=== PATIENT | male | born 1995 | race Two or more races ===

== ENCOUNTER 2022-02-12 19:40 | Emergency (ER) | payer MEDICAID, OTHER ==
[~2022-02-12] VITALS: Ht 175.3 cm; Wt 113.4 kg
--- NOTE | 2022-02-12 19:54 | NUR ---
[id number] FROM HOME C/O RIGHT SIDE ABD PAIN STARTED IN THE AM. PT A/OX4. TOLERATING R/A AT 98% WITH NO RESP DISTRESS. CONNECTED PT TO POX AND MONITOR. SAFETY MEASURES IN PLACE.
[2022-02-12] MEDS ORDERED: PANTOPRAZOLE 40 MG VIAL ONE (20:57)
[2022-02-12] MEDS ORDERED: ONDANSETRON HCL/PF 4 MG/2 ML VIAL ONE (20:57)
[2022-02-12] MEDS ORDERED: PANTOPRAZOLE 40 MG VIAL IV ONE (21:00)
[2022-02-12] MEDS ORDERED: IV NS 0.9% 1,000 ML BAG IV ONE (21:00)
[2022-02-12] MEDS ORDERED: ONDANSETRON HCL/PF 4 MG/2 ML VIAL IVP ONE (21:00)
--- NOTE | 2022-02-12 21:10 | NUR ---
US TECH AT PT'S BEDSIDE
[2022-02-12 21:13] LABS: BASOPHILS % (AUTO) 0.1 % (0.0-2.0); EOSINOPHILS % (AUTO) 0.1 % (0.0-6.0); HEMATOCRIT 44 % (39-51); HEMOGLOBIN 14.8 g/dL (13.5-17.5); LYMPHOCYTES # (AUTO) 0.7 K/uL (0.8-4.8); LYMPHOCYTES % (AUTO) 5.5 % (20.0-44.0); MEAN CORPUSCULAR HGB CONC 34 g/dl (31.0-36.0); MEAN CORPUSCULAR VOLUME 81 fL (80-96); MONOCYTES # (AUTO) 0.8 K/uL (0.1-1.30); MONOCYTES % (AUTO) 6.2 % (2.0-12.0); NEUTROPHILS # (AUTO) 11.4 K/uL (1.8-8.9); NEUTROPHILS % (AUTO) 88.1 % (43.0-81.0); PLATELET COUNT (AUTO) 202 K/uL (150-450); RED BLOOD CELL COUNT(AUTO) 5.49 MIL/uL (4.5-6.0); WHITE BLOOD COUNT (AUTO) 12.9 K/uL (4.3-11.0)
--- NOTE | 2022-02-12 21:14 | NUR ---
LAC #18G S/L BLOOD COLLECTED AND SENT TO LAB
[2022-02-12 21:32] LABS: ALBUMIN 4.5 g/dL (3.4-5.0); BILIRUBIN,DIRECT 0.2 mg/dL (0.0-0.2); BILIRUBIN,TOTAL 1.1 mg/dL (0.2-1.0); CALCIUM, SERUM 10.2 mg/dL (8.5-10.1); CREATININE 1.1 mg/dL (0.6-1.3); POTASSIUM 4.2 mmol/L (3.5-5.1)
[2022-02-12] MEDS ORDERED: ONDA4TAB5 PO (21:53)
[2022-02-12] MEDS ORDERED: PANT40TA2 PO (21:53)
--- NOTE | 2022-02-12 22:11 | NUR ---
Patient discharged to home in stable condition. Written and verbal after care instructions given. Patient verbalizes understanding of instruction. IV removed. Catheter intact and site benign. Pressure and 4x4 applied to site. No bleeding noted. pt ambulatory with a steady gait
[2022-02-12 22:12] VITALS: BP 120/73
== END 2022-02-12 22:12 | disposition home or self-care (01) ==
LOC: ER 19:43
DX: R10.10 Upper abdominal pain, unspecified (principal); R11.10 Vomiting, unspecified
CPT/HCPCS: 99284; 96374; 76700; 96361; 96375; 85025; 80048; 83690; 80076; 36415; J2405; J7030 ×2; C9113